=== PATIENT | female | born 1980 | race Caucasian/White ===

== ENCOUNTER 2017-05-28 16:53 | Observation (INO) | payer BC ==
[2017-05-28 18:24] VITALS: BMI 34.2
[2017-05-28] MEDS ORDERED: Promethazine HCl 25 MG/ML VIAL SLOW IVP SCH (20:00)
[2017-05-28] MEDS ORDERED: Valproate Sodium 500 MG in Sodium Chloride 0.9% 100 ML IVPB SCH (21:00)
[2017-05-28] MEDS: Topiramate 100 MG TAB PO SCH (22:15)
[2017-05-28] MEDS: Ketorolac Tromethamine 30 MG/ML VIAL IVP SCH (22:52)
[2017-05-28] MEDS: Promethazine HCl 25 MG in Sodium Chloride 0.9% 50 ML IVPB SCH (22:55)
[2017-05-29] MEDS: Ketorolac Tromethamine 30 MG/ML VIAL IVP SCH ×4 (02:38→17:39)
[2017-05-29] MEDS: Promethazine HCl 25 MG in Sodium Chloride 0.9% 50 ML IVPB SCH (02:38)
[2017-05-29] MEDS: Ondansetron HCl/PF 4 MG/2 ML Vial IVP PRN ×2 (05:21→13:32)
[2017-05-29] MEDS: Topiramate 100 MG TAB PO SCH ×2 (08:04→21:19)
[2017-05-29] MEDS: Propranolol HCl LA 80 MG CAP PO SCH (08:04)
[2017-05-29] MEDS ORDERED: FLU VACC QS2017-18 36 mo. & older 0.5 ML SYRINGE IM ONE (09:00)
[2017-05-29] MEDS ORDERED: Valproate Sodium 500 MG in Sodium Chloride 0.9% 100 ML IVPB SCH (12:00)
[2017-05-29] MEDS ORDERED: Clopidogrel Bisulfate 75 MG TAB ONE (12:06)
--- NOTE | 2017-05-29 13:17 | MRI ---
BRAIN MRI WITHOUT CONTRAST: Date: 05-29-17 Comparison: None. History: 3-month history of migraine headaches. Technique: Multiplanar, multisequence MR imaging of the brain is obtained without contrast. FINDINGS: The diffusion weighted imaging demonstrates no evidence for acute infarction. The axial gradient echo imaging demonstrates no evidence for intracranial hemorrhage. No midline shift, mass effect, or ventricular enlargement is noted. Regional bone marrow signal inten sity appears within normal limits. The imaged paranasal sinuses/mastoid air cells are grossly unremarkable. Arterial flow voids at axial level of skull base appear unremarkable on the T2 weighted imaging. IMPRESSION: Unremarkable noncontrast enhanced brain MRI. POS: [facility]
[2017-05-29] MEDS: acetaZOLAMIDE Sodium 500 MG in Sodium Chloride 0.9% 50 ML IVPB SCH (20:20)
[2017-05-29] MEDS: Bisacodyl 5 MG TAB PO PRN (20:20)
[2017-05-29] MEDS ORDERED: clonazePAM 0.5 MG TAB PO SCH (21:00)
[2017-05-29] MEDS: Methocarbamol 0.5 GM in Sodium Chloride 0.9% 100 ML IVPB SCH (21:19)
[2017-05-30] MEDS: Ondansetron HCl/PF 4 MG/2 ML Vial IVP PRN ×3 (00:12→14:27)
[2017-05-30] MEDS: Ketorolac Tromethamine 30 MG/ML VIAL IVP SCH ×3 (00:12→11:54)
[2017-05-30] MEDS: acetaZOLAMIDE Sodium 500 MG in Sodium Chloride 0.9% 50 ML IVPB SCH ×3 (02:36→15:19)
[2017-05-30] MEDS: Methocarbamol 0.5 GM in Sodium Chloride 0.9% 100 ML IVPB SCH ×2 (05:56→13:15)
[2017-05-30] MEDS: Propranolol HCl LA 80 MG CAP PO SCH (09:01)
[2017-05-30] MEDS: Topiramate 100 MG TAB PO SCH (09:01)
[2017-05-30] MEDS: Bisacodyl 5 MG TAB PO PRN (13:23)
[2017-05-30 15:58] VITALS: BP 132/77; TEMP 97.8
--- NOTE | 2017-05-31 07:38 | MRI ---
MAGNETIC RESONANCE VENOGRAPHY MRV BRAIN NONCONTRAST: History: 36-year-old female with three months of headache. Technique: After application of an inferior saturation band below the skull base, 2D [id number] MRA was obta ined in multiple coronal slabs. 3D MIP reconstructions. FINDINGS: There is demonstrated flow related signal in the superior sagittal sinus, straight sinus, vein of Gal an, transverse sinuses, sigmoid sinuses and proximal jugular bulbs. The left transverse sinus is rela tively hypoplastic compared to the right. IMPRESSION: Negative. No evidence of dural venous sinus thrombosis. POS: [facility]
--- NOTE | 2017-06-01 07:08 | PRG ---
DATE OF SERVICE: 05/29/2017 SUBJECTIVE: Ms. Eladio Wood continues to complain of severe intractable headache. She has been no w released with the administration of Solu-Medrol, Depakote, Toradol, and Phenergan. She was not abl e to tolerate Phenergan, so she was switch to Zofran. She reports that she has been having constipat ion, and she said that her last bowel movement was on the day of admission. She states that even tho ugh if she is not had any bowel movement only for one day, she feels this is constipation, and she te nds to have bowel movement 3 to 4 times per day and she has not had any since being admitted to the [facility]. PHYSICAL EXAMINATION: VITAL SIGNS: Blood pressure of 113/50, pulse of 65, temperature of 98.1, respirations of 20, O2 sats 96% on room air. GENERAL: [id number], well-nourished female in no apparent distress. RESPIRATORY: Clear to auscultation bilaterally. CARDIOVASCULAR: Regular rate and rhythm. ABDOMEN: Soft, nondistended and with normal bowel sounds. NEUROLOGIC: Essentially unchanged. ASSESSMENT AND PLAN: 1. Status migrainosus. 2. Idiopathic intracranial hypertension. Ms. Eladio Wood is a pleasant 36-year-old female who continues to complain of severe intr actable headache. She did not see much improvement with . I will add IV 5 mg q.8 h. p.r. n. to see if that helps with her headache. I would also give her clonazepam 0.5 mg at bedtime to hel p control her sleep at night, this also help with her anxiety. I did obtain MRI brain today, which s howed no acute intracranial abnormality. My plan is to discharge her home on tomorrow, if there is n o improvement in her headache with current medications. May refer her to outpatient headache special ist as well as [facility] and Neurosurgery for further evaluation.
--- NOTE | 2017-06-01 07:13 | HP ---
DATE OF ADMISSION: 05/28/2017 REASON FOR ADMISSION: . HISTORY OF PRESENT ILLNESS: Ms. Eladio Wood is a pleasant 36-year-old female with a hist ory of idiopathic intracranial hypertension. She presented to the clinic with acute ongoing severe i ntractable headaches. She was prescribed Topamax without any relief. She had been given tramadol ___ __ along with the tramadol injection without any relief. Her headaches were severe and affecting her quality of life and decided to admit to the hospital for IV medication therapy. She had reported th at headaches located in the bifrontal orbital region. They are throbbing in quality, 10/10 in intens ity, lasting whole day. Denies any nausea, blurred vision, photophobia and phonophobia, lightheadedn ess, dizziness with recurrence. PAST MEDICAL HISTORY: Significant for pseudotumor cerebri, anxiety disorder, asthma, GERD. PAST SURGICAL HISTORY: Significant for appendectomy, cholecystectomy, foot surgery, hernia repair, s houlder surgery, tubal ligation, and ventral hernia repair. FAMILY HISTORY: Significant for mother with hypertension, diabetes, and heart disease. Father with arthritis. SOCIAL HISTORY: She is a former smoker, quit in 2014. She reports of social alcohol use. She denie s illicit drug use. She is . Currently works as an senior administrative assistant. CURRENT MEDICATIONS: Please review MAR. ALLERGIES: Include VICODIN, PENICILLIN, HYDROCODONE, TYLENOL. PHYSICAL EXAMINATION: VITAL SIGNS: Blood pressure on admission 106/58, pulse 62, temperature of 97.8, respirations of 16, O2 sats of 98% in room air. GENERAL: Well-developed, well-nourished female, no apparent distress. RESPIRATORY: Clear to auscultation bilaterally. CARDIOVASCULAR: Regular rate and rhythm. NEUROLOGIC: Mental status: The patient is awake, alert, oriented x3. Speech and language: Fluent speech. Cranial nerves: Pupils are 3 mm and reactive. Visual reyes are intact. Extraocular muscl es are intact. No nystagmus is noted. Face is symmetric. Tongue and uvula are midline. Motor exam showed normal tone and bulk with 5/5 strength in both upper and lower extremities. Sensory: Sensat ion is intact and symmetric. Deep tendon reflexes: 2+ in both upper and lower extremities. [place] i: Plantar responses flexion bilaterally. Coordination: Intact to [id number]-[id number] tapping bilat erally. Gait and Romberg are normal. IMPRESSION: 1. Status migrainosus. 2. Idiopathic intracranial hypertension. Ms. Eladio Wood is a pleasant 36-year-old female with history of idiopathic intracranial hypertension, presented, is being admitted again for severe intractable headache. In my opinion, lik jody combination of pseudotumor cerebri and intractable migraine and we will start her on IV Depakote 500 mg q.12 hours x2 doses along with Toradol 30 mg IV with Phenergan 25 mg IV q. 6 hours. Also, sta rt her on IV Solu-Medrol q.[address] her on GI prophylaxis. I will continue to mo nitor her progress during this hospitalization and I plan to discharge her home in 1-2 days. Patient was explained the plan of care.
--- NOTE | 2017-06-01 07:34 | DIS ---
DATE OF ADMISSION: 05/28/2017 DATE OF DISCHARGE: 05/30/2017 ADMISSION DIAGNOSES: 1. Status migrainosus. 2. Idiopathic intracranial hypertension. DISCHARGE DIAGNOSES: 1. Status migrainosus. 2. Idiopathic intracranial hypertension. PROCEDURE DONE DURING ADMISSION: 1. MRI brain without contrast. 2. MRV head. CONSULTATIONS DONE DURING ADMISSION: None. BRIEF HOSPITAL COURSE: Ms. Eladio Wood is a pleasant 36-year-old female who presented wi th severe intractable headache that has been ongoing for the past 2 months. This has not responded t o . I started her on IV Depakote 5 mg q. 12 hours x2 doses. I also started her on IV Solu-Medr ol 250 mg q.6 hours along with tramadol 30 mg IV and Phenergan 25 mg IV q.6 hours. She was not able to tolerate Phenergan as it was causing her to have side effects, and thus she was switched to Zofran 4 mg q.6 hours. I had obtained MRI brain without contrast which does not showed any acute intracran ial abnormality. As his headaches where ongoing without any improvement. I had started her on IV Ro baxin 500 mg q.8 hours along with IV Diamox 500 mg q.6 hours for 1 day. She continued to have headac hes without any improvement with all these medications. Due to this reason, I have decided to discha rge her to home with as well as appointment with a lean consultant and neurosurgeon for further ev aluation. I have discussed with the patient and I do not think shunt is a good choice for her treatm ent of her pseudotumor cerebri; however, she was adamant about being referred to Neurosurgery for the evaluation of shunt placement for pseudotumor cerebri. DISCHARGE PHYSICAL EXAMINATION: VITAL SIGNS: Blood pressure 108/56, pulse of 72, temperature of 98, respirations of 20, O2 sats are 98% on room air. GENERAL: A well-developed, well-nourished, female in no apparent distress. RESPIRATORY: Clear to auscultation bilaterally. CARDIVASCULAR: Regular rate and rhythm. NEUROLOGIC: Essentially unchanged. DISCHARGE PLAN: Discharge patient to home. CONDITION: Stable. ACTIVITY: Ad monika. DIET: Regular diet. DISCHARGE MEDICATION: Continue home medications. DISCHARGE FOLLOWUP: Patient will be referred to any specialist as an outpatient. She will also be r eferred to Jewel Inspector for evaluation of and formal visual field test as an outpatient. Alban miller will also be referred to Neurosurgery for their recommendations regarding shunt placement for i diopathic intracranial hypertension. DISPOSITION: Discharge patient to home.
== END 2017-05-30 16:08 | disposition home or self-care (01) ==
LOC: 3SE 16:57
PROVIDERS: ADMIT Psychiatry & Neurology Neurology; ATTEND Psychiatry & Neurology Neurology
DX: G43.001 Migraine without aura, not intractable, with status migrainosus (principal); G93.2 Benign intracranial hypertension; J45.909 Unspecified asthma, uncomplicated; K21.9 Gastro-esophageal reflux disease without esophagitis; F41.9 Anxiety disorder, unspecified; Z88.5 Allergy status to narcotic agent; Z88.0 Allergy status to penicillin; Z88.8 Allergy status to other drugs, medicaments and biological substances; Z90.49 Acquired absence of other specified parts of digestive tract; Z98.890 Other specified postprocedural states; Z87.891 Personal history of nicotine dependence; Z82.49 Family history of ischemic heart disease and other diseases of the circulatory system; Z83.3 Family history of diabetes mellitus
CPT/HCPCS: 70544; 70551; 96365; 96366; 96367; 96375; 96376; A4216; G0378; J1120; J1885; J2405; J2550; J2800; J2930; J7050